=== PATIENT | female | born 1970 | race Asian ===

== ENCOUNTER → 2023-11-11 | Emergency (ER) | payer SELFPAY ==
--- NOTE | 2023-11-11 16:51 | ER ---
Nurse's Notes [facility] Name: Maryjane Carrillo Age: 53 yrs Sex: Female : 1970 Arrival Date: 11/11/2023 Time: 16:34 Bed IW10 Private MD: Diagnosis: Otalgia, bilateral Presentation: 11/10 16:44 Chief complaint: Patient states: Pt c/o bilateral ear pain x 15-20 days. No drainage, tl4 fever/chills. Coronavirus screen: At this time, the client does not indicate any symptoms associated with coronavirus-19. Ebola Screen: No symptoms or risks identified at this time. Initial Sepsis Screen: Does the patient meet any 2 criteria? No. Patient's initial sepsis screen is negative. Does the patient have a suspected source of infection? No. Patient's initial sepsis screen is negative. Risk Assessment: Do you want to hurt yourself or someone else? Patient reports no desire to harm self or others. Onset of symptoms was October 21, 2023. 16:44 Method Of Arrival: Ambulatory tl4 16:44 Acuity: ERON 5 tl4 Triage Assessment: 16:51 General: Appears in no apparent distress. Behavior is calm, cooperative. Pain: tl4 Complains of pain in right ear and left ear. EENT: Reports pain in left ear and right ear. Neuro: No deficits noted. Cardiovascular: No deficits noted. Respiratory: No deficits noted. GI: No deficits noted. No signs and/or symptoms were reported involving the gastrointestinal system. : No deficits noted. No signs and/or symptoms were reported regarding the genitourinary system. Derm: No deficits noted. No signs and/or symptoms reported regarding the dermatologic system. Historical: - Allergies: 16:51 No Known Allergies; tl4 - Home Meds: 16:51 None [Active]; tl4 - PMHx: 16:51 Hypothyroidism; Hypertensive disorder; tl4 - Immunization history:: Adult Immunizations unknown. - Social history:: Smoking status: Patient denies any tobacco usage or history of. Screenin:30 [facility] ED Fall Risk Assessment (Adult) History of falling in the last 3 months, bp including since admission No falls in past 3 months (0 pts). Abuse screen: Denies threats or abuse. Denies injuries from another. Nutritional screening: No deficits noted. Tuberculosis screening: No symptoms or risk factors identified. Assessment: 17:30 Reassessment: SEE TRIAGE NOTE. bp Vital Signs: 16:52 BP 165 / 90; Pulse 68; Resp 16; Temp 98.4(O); Pulse Ox 97% ; Weight 77.11 kg; Height 5 tl4 ft. 0 in. ; Pain 5/10; 16:52 Body Mass Index 33.20 (77.11 kg, 152.4 cm) tl4 16:52 Pain Scale: Adult tl4 ED Course: 16:39 Patient arrived in ED. im 16:39 Anay Mooney FNP-C is [facility]. kb 16:39 Hany Sr MD is Attending Physician. kb 16:45 Triage completed. tl4 16:45 Arm band placed on right wrist. tl4 17:30 Lucio aM, RN is Primary Nurse. bp 17:30 Patient has correct armband on for positive identification. bp 17:30 No provider procedures requiring assistance completed. Patient did not have IV access bp during this emergency room visit. Administered Medications: No medications were administered Medication: 17:30 VIS not applicable for this client. bp Outcome: 16:50 Discharge ordered by MD. kb 17:30 Discharged to home ambulatory, bp 17:30 Condition: stable 17:30 Discharge instructions given to patient, Instructed on discharge instructions, follow up and referral plans. Demonstrated understanding of instructions, follow-up care, 17:31 Patient left the ED. bp Signatures: Anay Mooney FNP-C FNP-Lucio Reynolds, RN RN bp Sita Desai Ranjith Melendez RN RN tl4
--- NOTE | 2023-11-11 16:51 | EDPHYS ---
Physician Documentation [facility] Name: Maryjane Carrillo Age: 53 yrs Sex: Female : 1970 Arrival Date: 11/11/2023 Time: 16:34 Bed IW10 Private MD: ED Physician Hany Sr HPI: 11/10 16:52 This 53 yrs old Female presents to ER via Ambulatory with complaints of Ear Pain. kb 16:52 Patient is a 53-year-old female who presents for bilateral ear pain that has been kb intermittent for 20 to 30 days. Denies fever, cough, congestion, ear drainage, decreased hearing.. Historical: - Allergies: 16:51 No Known Allergies; tl4 - Home Meds: 16:51 None [Active]; tl4 - PMHx: 16:51 Hypothyroidism; Hypertensive disorder; tl4 - Immunization history:: Adult Immunizations unknown. - Social history:: Smoking status: Patient denies any tobacco usage or history of. ROS: 16:51 Constitutional: As per HPI kb Exam: 16:51 Constitutional: This is a well developed, well nourished patient who is awake, alert, kb and in no acute distress. Head/Face: Normocephalic, atraumatic. ENT: Moist Mucous membranes Cardiovascular: Regular rate Respiratory: Respirations even and unlabored. No increased work of breathing. Talking in full sentences Skin: Warm, dry with normal turgor. Normal color. MS/ Extremity: Pulses equal, no cyanosis. Neurovascular intact. Full, normal range of motion. Neuro: Awake and alert, GCS 15, oriented to person, place, time, and situation. Moves all extremities. Normal gait. Vital Signs: 16:52 BP 165 / 90; Pulse 68; Resp 16; Temp 98.4(O); Pulse Ox 97% ; Weight 77.11 kg; Height 5 tl4 ft. 0 in. ; Pain 5/10; 16:52 Body Mass Index 33.20 (77.11 kg, 152.4 cm) tl4 16:52 Pain Scale: Adult tl4 MDM: 16:39 Patient medically screened. kb 16:51 Differential diagnosis: otitis media, otitis externa, ruptured TM, foreign body, acute kb otalgia. Data reviewed: vital signs, nurses notes. Counseling: I had a detailed discussion with the patient and/or guardian regarding the historical points, exam findings, and any diagnostic results supporting the discharge/admit diagnosis, the need for outpatient follow up, an ENT specialist, to return to the emergency department if symptoms worsen or persist or if there are any questions or concerns that arise at home. Administered Medications: No medications were administered Disposition Summary: 11/11/23 16:50 Discharge Ordered Notes: Location: Home kb Condition: Stable kb Diagnosis - Otalgia, bilateral kb Followup: kb - With: Emergency Department - When: As needed - Reason: Worsening of condition Followup: kb - With: Private Physician - When: 2 - 3 days - Reason: Recheck today's complaints, Continuance of care, Re-evaluation by your physician Discharge Instructions: - Discharge Summary Sheet kb - Ear Drops, Adult, [id number] kb Forms: - Medication Reconciliation Form kb - Thank You Letter kb - Antibiotic Education kb - Prescription Opioid Use kb - Patient Portal Instructions kb - Leadership Thank You Letter kb Addendum: 11/16/2023 06:57 Co-signature as Attending Physician, Hany Sr MD I reviewed the patient's care r n provided by the Advanced Practice Provider and agree with the diagnosis and treatment plan. Signatures: Anay Mooney, AUDIO VISUAL ARTS DIRECTOR-C AUDIO VISUAL ARTS DIRECTOR-Ckb Hany Sr MD MD rn [facility] RN RN tl4
[2023-11-11 17:51] VITALS: BP 165/90; TEMP 98.4; O2SAT 97
== END ==
LOC: ER 16:34
DX: H92.03 Otalgia, bilateral (principal)
CPT/HCPCS: 99282